=== PATIENT | male | born 2000 | race Caucasian/White ===

== ENCOUNTER 2023-08-17 06:22 | Emergency (ER) | payer SELFPAY ==
[~2023-08-17] VITALS: Ht 152.4 cm; Wt 50.8 kg
[2023-08-17 06:26] VITALS: BP 98/48; PULSE 106; RESP 18; TEMP 98; O2SAT 98
[2023-08-17 07:22] VITALS: BP 104/53; PULSE 91; RESP 17; TEMP 98; O2SAT 98
== END 2023-08-17 08:27 ==
LOC: MED 06:22
DX: S01.511A Laceration without foreign body of lip, initial encounter (principal); V49.88XA Car occupant (driver) (passenger) injured in other specified transport accidents, initial encounter; Y93.89 Activity, other specified; Y92.89 Other specified places as the place of occurrence of the external cause; Y99.8 Other external cause status
CPT/HCPCS: 71045; 90471; 90715; 99284; Q0092